=== PATIENT | male | born 1980 | race Caucasian/White ===

== ENCOUNTER 2024-08-21 13:35 | Emergency (ER) | payer OTHER, SELFPAY ==
[2024-08-21 13:37] VITALS: BP 120/82
[2024-08-21 14:00] LABS: Hematocrit 43.3 % (39.0-52.0); Hemoglobin 14.3 g/dL (13.0-18.0); Mean Corp Hgb Conc. 33.0 g/dL (33.0-37.0); Mean Corpuscular Volume 81.2 fL (80.0-94.0); Nucleated Red Blood Cells % 0 % (-); Platelet Count 163 10^3/uL (130-400); Red Cell Dist. Width 13.2 % (11.5-14.5)
[2024-08-21 14:17] LABS: AST (SGOT) 29 U/L (17-59); Albumin 4.7 g/dl (3.5-5.0); Alkaline Phosphatase 44 U/L (38-126); Blood Urea Nitrogen 21 mg/dl (9-20); Carbon Dioxide 27 mmol/L (22-30); Chloride 108 mmol/L (98-107); Glucose 107 mg/dl (70-99); Lipase 68 U/L (23-300); Potassium 4.4 mmol/L (3.5-5.1); Sodium 140 mmol/L (135-145); Total Protein 7.5 g/dl (6.3-8.2); eGFR > 60.00
[2024-08-21 14:28] LABS: ALT (SGPT) 48 U/L (0-50); Calcium 9.3 mg/dl (8.4-10.2)
--- NOTE | 2024-08-21 16:05 | ED.GENMED ---
History of Present Illness
General
Chief Complaint: Abdominal Pain
Source: patient
Exam Limitations: none
Time Seen by Provider: 08/21/24 16:03
History of Present Illness
History of Present Illness:
44yoM with no significant past medical history presenting for evaluation of abdominal pain. Patient's recently gave a few days ago. His symptoms began shortly after eating his last meal in the hospital which consisted of meat. He
reports a pain in the epigastric and right upper quadrant region. Pain intermittently radiates to the right shoulder and back. Pain is worse with certain positions, specifically if he leans forward or lays flat. He was having some pain with deep
breathing previously but denies this currently. He also started to have some belching yesterday. No prior history of similar pains in the past. He is otherwise asymptomatic and denies any chest pain, shortness of breath, vomiting, diarrhea,
dysuria, fevers. No previous abdominal surgeries.
Past History
Past History
ED Past Medical History: None
ED Past Surgical History: None
Social History
Tobacco: Non-smoker
Personal: Single
Living: alone
Employment: Employed
Family History
Family History: Other (Noncontributory)
Phy Exam
General Physical Exam
General Presentation: well appearing and no apparent distress
General Skin: warm and dry
General Habitus: normal
General Mental: alert
ENT Exam
ENT Exam: normocephalic
Cardiovascular Exam
Cardiovascular Exam: regular rate/rhythm
Pulmonary Exam
Pulmonary Exam: lungs clear, no respiratory distress, no rales, no crackles, no rhonchi and no wheezing
Gastrointestinal Exam
Gastrointestinal Exam: soft, non distended and other (Mild tenderness in epigastrium and RUQ. Abdomen soft, non-distended. No rebound or guarding.)
Neurological Exam
Neurological Exam: alert
John Coma Scale
Eye Opening: Spontaneous
Verbal Response: Oriented
Motor Response: Obeys Commands
GCS Total Score: 15
Skin Exam
Skin Exam: normal color and warm/dry
Psychiatric Exam
Psychiatric Exam: normal mood/affect
Course
Orders/Labs/Results
Orders:
Orders
08/21/24 13:41
Electrocardiogram (*1) Urgent
Reason for Study: Abdominal Pain
EKG- Treatment ONCE
08/21/24 13:49
Complete Blood Count/With Diff Urgent
Comprehensive Metabolic Panel Urgent
Lipase Urgent
08/21/24 16:39
CT Abd/pelvis W Iv Cont Urgent
Comment:
Reason For Exam: Epigastric, RUQ pain
Abnormal Lab Results
08/21/24
13:49
MCH 26.8 L pg
(27.0-31.0)
MPV 11.4 H fL
(7.4-10.4)
Abs Immat Gran (auto) 0.1 H 10^3/uL
(0-0.05)
Absolute Monos (auto) 0.7 H 10^3/uL
(0.1-0.6)
Immature Gran % 1.4 H %
(0-0.5)
Chloride 108 H mmol/L
(98-107)
BUN 21 H mg/dl
(9-20)
Glucose 107 H mg/dl
(70-99)
08/21/24 13:49
08/21/24 13:49
Vital Signs
Initial and Last Documented VS:
Initial Vital Signs
Temp Pulse Resp BP Pulse Ox
98.2 F 101 16 120/82 98
08/21/24 13:37 08/21/24 13:37 08/21/24 13:37 08/21/24 13:37 08/21/24 13:37
Last Documented Vital Signs
Temp Pulse Resp BP Pulse Ox
98.2 F 83 16 115/71 99
08/21/24 13:37 08/21/24 19:08 08/21/24 19:08 08/21/24 19:53 08/21/24 19:53
MDM/Problems Addressed
Differential Diagnosis Includes:
44yoM here with epigastric pain x several days. Radiates to RUQ/back and R shoulder. Worse with certain positions. Also having belching. VSS. He is well appearing in no distress. No signs of peritonitis on abdominal exam. Differential diagnosis
includes but is not limited to: gastritis, PUD, biliary colic, cholecystitis, pancreatitis, musculoskeletal
Initial ED plan: Labs obtained in triage. White count, LFTs, lipase all normal. EKG shows NSR without ischemic changes. Will check CT abdomen.
*Pulse Oximetry
SaO2: 98
Oxygen Mode of Delivery: Room air
Patient hypoxic: no (98%)
*EKG
Interpreted by ED Provider?: Yes
EKG Intrepretation Date: 08/21/24
Heart Rate: 85
Rate: normal
Rhythm: sinus
[place]: normal axis
Interval: normal interval
QRS Pattern: normal QRS
Ischemia: no ischemia
*Critical Care Note
Total Time (30-74mins, 75-104mins- exclusive of procedures): Not Applicable
Update Note
Update Note:
Imaging is negative for acute findings. Specifically, the gallbladder and pancreas appear normal. Unclear etiology of symptoms. Suspect gastritis vs. musculoskeletal. He was advised to trial Pepcid BID. He has an appt scheduled with his PCP next
week. ED return precautions reviewed. He was discharged in stable condition.
ED Attending Note
-
Portions of this chart may have been created with voice recognition software.� Occasional wrong word or��sound alike� substitutions may have occurred due to the inherent limitations of voice recognition software.
Discharge Plan
Departure
Patient Disposition: Home (Routine Discharge)
Date of Disposition: 08/21/24
Time of Disposition: 19:45
Patient with high blood pressure during this ER visit?: No
Discharge Problem:
Epigastric pain
Instructions: Abdominal Pain
Prescriptions:
No Action
ascorbic acid (vitamin C) [Vitamin C] 1,000 MG tablet
1 tab PO Daily
cholecalciferol (vitamin D3) 2,000 UNIT tablet
2,000 unit PO Daily
Referrals:
Sridevi Florez DO [Family Provider, Internal Medicine]
Activity Restrictions/Additional Instructions:
Take Pepcid 20 mg twice a day as needed for acid reflux/heartburn.
Please follow-up with your family doctor next week. Return to the ER with any new or worsening symptoms.
Interventions
Interventions:
*Risk Screen - Suicide Last Done: 08/21/24 13:37
*General Assessment Last Done: 08/21/24 16:50
*Neglect/Abuse Screening Last Done: 08/21/24 13:37
*ED- Fall Risk Assessment Last Done: 08/21/24 16:50
*ED COVID-19 Vaccine History Last Done: 08/21/24 16:50
*Nursing Disposition Last Done: 08/21/24 19:53
VF-Giaage-Stwurjlahc Assessment Last Done: 08/21/24 16:50
Discharge Date and Time
Discharge Date/Time: 08/21/24 19:54
Print Language: SURINAMESE
[2024-08-21 16:50] VITALS: BMI 27.0
[2024-08-21 19:53] VITALS: BP 115/71
== END 2024-08-21 19:54 | disposition home or self-care (01) ==
LOC: EMR 13:35
PROVIDERS: Emergency Medicine; EMERGENCY PHYSICIAN Emergency Medicine; FAMILY PHYSICIAN Internal Medicine
DX: R10.13 Epigastric pain (principal); R10.11 Right upper quadrant pain; R14.2 Eructation
CPT/HCPCS: 99284; 74177; 80053; 83690; 85025; 93005; Q9967